=== PATIENT | male | born 1995 | race African-American/Black ===

== ENCOUNTER 2019-05-28 21:14 | Emergency (ER) | payer MEDICAID ==
[~2019-05-28] VITALS: Ht 185.4 cm; Wt 97.5 kg
[2019-05-28] MEDS ORDERED: PENICILLIN G BENZ 1200000 UNITS/2 ML SYRG IM ONE (21:45)
[2019-05-28 21:55] VITALS: BP 131/82
[2019-05-28] MEDS ORDERED: AZITHROMYCIN 250 MG TAB PO ONE ×2 (22:00→22:15)
[2019-05-28] MEDS ORDERED: cefTRIAXone SOD 1,000 MG VL IM ONE (22:00)
[2019-05-28] MEDS ORDERED: cefTRIAXone SODIUM 250 MG VL IM ONE (22:15)
== END 2019-05-28 22:37 | disposition home or self-care (01) ==
LOC: ER 21:17
DX: R21 Rash and other nonspecific skin eruption (principal); Z20.2 Contact with and (suspected) exposure to infections with a predominantly sexual mode of transmission
CPT/HCPCS: 96372; 99284; J0561; J0696